=== PATIENT | male | born 1985 | race Caucasian/White ===

== ENCOUNTER 2020-12-01 09:08 | Inpatient (IN) | payer OTHER ==
[2020-12-01 10:27] VITALS: BMI 29.5
[2020-12-01] MEDS ORDERED: METHADONE HCL 10 MG TABLET (FOR DETOX USE ONLY) PO ONE (11:06)
[2020-12-01] MEDS ORDERED: cloNIDine HCL 0.1 MG TABLET PO PRN (11:06)
[2020-12-01] MEDS ORDERED: METHOCARBAMOL 500 MG TABLET PO PRN (11:06)
[2020-12-01] MEDS ORDERED: NICOTINE POLACRILEX 2 MG GUM BUC PRN (11:06)
[2020-12-01] MEDS ORDERED: MENTHOL/PHENOL 1 EACH UD MM PRN (11:06)
[2020-12-01] MEDS ORDERED: MAGNESIUM CITRATE 300 ML BOTTLE PO PRN (11:06)
[2020-12-01] MEDS ORDERED: BISMUTH SUBSALICYLATE 524 MG/30 ML UD PO PRN (11:06)
[2020-12-01] MEDS ORDERED: MAG HYDROX/AL HYDROX/SIMETH 30 ML UNIT-DOSE CUP PO PRN (11:06)
[2020-12-01] MEDS ORDERED: ACETAMINOPHEN 325 MG TABLET (FP) PO PRN ×2 (11:06)
[2020-12-01] MEDS ORDERED: MAGNESIUM HYDROX 2400MG/30ML ORAL SUSPENSION 30 ML CUP PO PRN (11:06)
[2020-12-01] MEDS ORDERED: ONDANSETRON *ODT* 4 MG TABLET SL PRN (11:06)
[2020-12-01] MEDS: cloNIDine HCL 0.1 MG TABLET PO SCH ×3 (12:33→22:25)
[2020-12-01] MEDS: NICOTINE 21 MG/24 HOURS TOPICAL PATCH TD SCH (12:36)
[2020-12-01] MEDS: PRENATAL VITAMINS W/ FOLIC ACID TABLET (FP) PO SCH (12:37)
[2020-12-01] MEDS ORDERED: PATIENT'S OWN MEDICATION (NON-FORMULARY) (Gabapentin [Gabapentin] 800 MG Tablet) PO SCH (14:00)
[2020-12-01] MEDS: hydrOXYzine PAMOATE 25 MG CAPSULE (FP) PO SCH ×3 (14:41→22:23)
[2020-12-01] MEDS: diazePAM 5 MG TABLET PO PRN (18:17)
[2020-12-01] MEDS ORDERED: MELATONIN 5 MG TABLETS PO SCH (22:00)
[2020-12-01] MEDS: GABAPENTIN 400 MG CAPSULE PO SCH (22:23)
[2020-12-01] MEDS: THIAMINE HCL 100 MG TABLET (FP) PO SCH (22:23)
[2020-12-02] MEDS: hydrOXYzine PAMOATE 25 MG CAPSULE (FP) PO SCH ×5 (05:11→22:23)
[2020-12-02] MEDS: cloNIDine HCL 0.1 MG TABLET PO SCH ×4 (05:13→22:27)
[2020-12-02] MEDS ORDERED: METHADONE HCL 5 MG TABLET (FOR DETOX USE ONLY) ONE (08:47)
[2020-12-02] MEDS ORDERED: METHADONE HCL 10 MG TABLET (FOR DETOX USE ONLY) ONE (08:47)
[2020-12-02] MEDS ORDERED: METHADONE (DETOX) 20 MG, METHADONE (DETOX) 5 MG PO ONE (10:00)
[2020-12-02 10:31] LABS: HEMATOCRIT 36.1 % (35.4-49); HEMOGLOBIN 12.6 GM/dL (11.7-16.9); MCH 29.2 pg (25.7-33.7); MEAN CELL VOLUME 83.4 fl (80-96); MEAN PLT VOLUME 7.7 fl (7.5-11.1); PLATELET COUNT 301 K/MM3 (134-434); RBC 4.33 M/mm3 (4.00-5.60); RDW 12.5 % (11.9-15.9); WHITE BLOOD COUNT 5.8 K/mm3 (4.0-10.0)
[2020-12-02] MEDS: GABAPENTIN 400 MG CAPSULE PO SCH ×2 (10:42→22:23)
[2020-12-02] MEDS: NICOTINE 21 MG/24 HOURS TOPICAL PATCH TD SCH (10:43)
[2020-12-02] MEDS: PRENATAL VITAMINS W/ FOLIC ACID TABLET (FP) PO SCH (10:43)
[2020-12-02] MEDS: diazePAM 5 MG TABLET PO PRN ×2 (10:47→19:02)
[2020-12-02 11:04] LABS: POTASSIUM 4.6 mmol/L (3.5-5.1)
[2020-12-02 11:07] LABS: ALBUMIN 3.3 g/dl (3.4-5.0); BLOOD UREA NITROGEN 9.3 mg/dL (7-18)
[2020-12-02 11:10] LABS: CREATININE 0.7 mg/dL (0.55-1.3)
[2020-12-02 11:12] LABS: BILIRUBIN,TOTAL 0.7 mg/dL (0.2-1); TOT PROT 6.8 g/dl (6.4-8.2)
[2020-12-02 15:26] LABS: HIV INTERPRETATION NEGATIVE (NEGATIVE)
[2020-12-02] MEDS: THIAMINE HCL 100 MG TABLET (FP) PO SCH (22:23)
[2020-12-02] MEDS: SUVOREXANT 10 MG TABLET PO PRN (22:26)
[2020-12-03] MEDS: hydrOXYzine PAMOATE 25 MG CAPSULE (FP) PO SCH ×5 (05:45→22:41)
[2020-12-03] MEDS: cloNIDine HCL 0.1 MG TABLET PO SCH ×4 (05:45→22:45)
[2020-12-03] MEDS: diazePAM 5 MG TABLET PO PRN ×3 (08:48→19:53)
[2020-12-03] MEDS: IBUPROFEN 400 MG TABLET (FP) PO PRN (08:50)
[2020-12-03] MEDS ORDERED: METHADONE HCL 10 MG TABLET (FOR DETOX USE ONLY) PO ONE (10:00)
[2020-12-03] MEDS: GABAPENTIN 400 MG CAPSULE PO SCH ×2 (10:11→22:41)
[2020-12-03] MEDS: PRENATAL VITAMINS W/ FOLIC ACID TABLET (FP) PO SCH (10:14)
[2020-12-03] MEDS: NICOTINE 21 MG/24 HOURS TOPICAL PATCH TD SCH (10:14)
[2020-12-03] MEDS: THIAMINE HCL 100 MG TABLET (FP) PO SCH (22:41)
[2020-12-03] MEDS: SUVOREXANT 10 MG TABLET PO PRN (22:44)
[2020-12-04] MEDS: hydrOXYzine PAMOATE 25 MG CAPSULE (FP) PO SCH ×5 (05:35→22:46)
[2020-12-04] MEDS: cloNIDine HCL 0.1 MG TABLET PO SCH ×4 (05:36→22:46)
[2020-12-04] MEDS: diazePAM 5 MG TABLET PO PRN ×3 (07:12→20:25)
[2020-12-04] MEDS ORDERED: METHADONE HCL 10 MG TABLET (FOR DETOX USE ONLY) ONE (09:14)
[2020-12-04] MEDS ORDERED: METHADONE HCL 5 MG TABLET (FOR DETOX USE ONLY) ONE (09:14)
[2020-12-04] MEDS ORDERED: METHADONE (DETOX) 10 MG, METHADONE (DETOX) 5 MG PO ONE (10:00)
[2020-12-04] MEDS: NICOTINE 21 MG/24 HOURS TOPICAL PATCH TD SCH (10:20)
[2020-12-04] MEDS: GABAPENTIN 400 MG CAPSULE PO SCH ×2 (10:20→22:47)
[2020-12-04] MEDS ORDERED: QUEtiapine FUMARATE 100 MG TABLET (FP) PO PRN (10:42)
[2020-12-04] MEDS: PRENATAL VITAMINS W/ FOLIC ACID TABLET (FP) PO SCH (11:09)
[2020-12-04] MEDS: SUVOREXANT 10 MG TABLET PO PRN (21:54)
[2020-12-04] MEDS: THIAMINE HCL 100 MG TABLET (FP) PO SCH (22:47)
[2020-12-04] MEDS: IBUPROFEN 400 MG TABLET (FP) PO PRN (22:47)
[2020-12-05] MEDS: hydrOXYzine PAMOATE 25 MG CAPSULE (FP) PO SCH ×5 (06:01→22:48)
[2020-12-05] MEDS: cloNIDine HCL 0.1 MG TABLET PO SCH ×4 (06:02→22:47)
[2020-12-05] MEDS ORDERED: METHADONE HCL 10 MG TABLET (FOR DETOX USE ONLY) PO ONE (10:00)
[2020-12-05] MEDS: GABAPENTIN 400 MG CAPSULE PO SCH ×2 (10:47→22:47)
[2020-12-05] MEDS: PRENATAL VITAMINS W/ FOLIC ACID TABLET (FP) PO SCH (10:47)
[2020-12-05] MEDS: NICOTINE 21 MG/24 HOURS TOPICAL PATCH TD SCH (10:48)
[2020-12-05] MEDS: diazePAM 5 MG TABLET PO PRN ×2 (10:50→15:23)
[2020-12-05] MEDS: THIAMINE HCL 100 MG TABLET (FP) PO SCH (22:47)
[2020-12-06] MEDS: cloNIDine HCL 0.1 MG TABLET PO SCH (05:56)
[2020-12-06] MEDS: hydrOXYzine PAMOATE 25 MG CAPSULE (FP) PO SCH (05:57)
[2020-12-06] MEDS ORDERED: METHADONE HCL 5 MG TABLET (FOR DETOX USE ONLY) PO ONE (06:00)
[2020-12-06] MEDS: diazePAM 5 MG TABLET PO PRN (08:08)
[2020-12-06 09:23] VITALS: BP 112/74; PULSE 73; TEMP 97.3
== END 2020-12-06 09:47 | disposition home or self-care (01) | DRG 773 ==
LOC: YASAS 09:08 → Y6N 11:22
PROVIDERS: ADMIT Allergy & Immunology; ATTEND Allergy & Immunology
PROC: HZ2ZZZZ Detoxification Services for Substance Abuse Treatment (ICD-10-PCS; principal; 2020-12-01)
DX: F11.23 Opioid dependence with withdrawal (principal); F13.20 Sedative, hypnotic or anxiolytic dependence, uncomplicated; F17.210 Nicotine dependence, cigarettes, uncomplicated; F19.282 Other psychoactive substance dependence with psychoactive substance-induced sleep disorder; F41.9 Anxiety disorder, unspecified; F32.9 Major depressive disorder, single episode, unspecified; I10 Essential (primary) hypertension; G40.909 Epilepsy, unspecified, not intractable, without status epilepticus; Z56.0 Unemployment, unspecified
CPT/HCPCS: 36415; 80053; 85027; 86780; 87389; 93005; 93010; C9803; J0735; U0003

== ENCOUNTER 2021-01-21 15:08 | Inpatient (IN) | payer OTHER ==
[2021-01-21] MEDS ORDERED: NICOTINE POLACRILEX 2 MG GUM BUC PRN (19:21)
[2021-01-21] MEDS ORDERED: BISMUTH SUBSALICYLATE 524 MG/30 ML UD PO PRN (19:21)
[2021-01-21] MEDS ORDERED: ONDANSETRON *ODT* 4 MG TABLET SL PRN (19:21)
[2021-01-21] MEDS ORDERED: MAGNESIUM HYDROX 2400MG/30ML ORAL SUSPENSION 30 ML CUP PO PRN (19:21)
[2021-01-21] MEDS ORDERED: METHADONE HCL 10 MG TABLET (FOR DETOX USE ONLY) PO ONE (19:21)
[2021-01-21] MEDS ORDERED: MAGNESIUM CITRATE 300 ML BOTTLE PO PRN (19:21)
[2021-01-21] MEDS ORDERED: MENTHOL/PHENOL 1 EACH UD MM PRN (19:21)
[2021-01-21] MEDS ORDERED: MAG HYDROX/AL HYDROX/SIMETH 30 ML UNIT-DOSE CUP PO PRN (19:21)
[2021-01-21] MEDS ORDERED: ACETAMINOPHEN 325 MG TABLET (FP) PO PRN ×2 (19:21)
[2021-01-21] MEDS ORDERED: IBUPROFEN 400 MG TABLET (FP) PO PRN (19:21)
[2021-01-21 19:46] VITALS: BMI 29.8
[2021-01-21] MEDS: PRENATAL VITAMINS W/ FOLIC ACID TABLET (FP) PO SCH (21:27)
[2021-01-21] MEDS: NICOTINE 14 MG/24 HOURS TOPICAL PATCH TD SCH (21:27)
[2021-01-21] MEDS: MELATONIN 5 MG TABLETS PO SCH (22:25)
[2021-01-21] MEDS: hydrOXYzine PAMOATE 25 MG CAPSULE (FP) PO SCH (22:26)
[2021-01-21] MEDS: GABAPENTIN 400 MG CAPSULE PO SCH (22:26)
[2021-01-21] MEDS: THIAMINE HCL 100 MG TABLET (FP) PO SCH (22:26)
[2021-01-22] MEDS: hydrOXYzine PAMOATE 25 MG CAPSULE (FP) PO SCH ×5 (05:47→22:13)
[2021-01-22] MEDS ORDERED: METHADONE HCL 5 MG TABLET (FOR DETOX USE ONLY) ONE (09:12)
[2021-01-22] MEDS ORDERED: METHADONE HCL 10 MG TABLET (FOR DETOX USE ONLY) ONE (09:12)
[2021-01-22] MEDS ORDERED: METHADONE (DETOX) 20 MG, METHADONE (DETOX) 5 MG PO ONE (10:00)
[2021-01-22] MEDS: cloNIDine HCL 0.1 MG TABLET PO PRN (10:30)
[2021-01-22] MEDS: PRENATAL VITAMINS W/ FOLIC ACID TABLET (FP) PO SCH (10:30)
[2021-01-22] MEDS: NICOTINE 14 MG/24 HOURS TOPICAL PATCH TD SCH (10:31)
[2021-01-22] MEDS: GABAPENTIN 400 MG CAPSULE PO SCH ×2 (10:31→22:13)
[2021-01-22 10:38] LABS: ALBUMIN 3.6 g/dl (3.4-5.0); BLOOD UREA NITROGEN 12.9 mg/dL (7-18); CALCIUM 8.8 mg/dL (8.5-10.1)
[2021-01-22 10:39] LABS: HEMATOCRIT 37.5 % (35.4-49); HEMOGLOBIN 12.7 GM/dL (11.7-16.9); MCH 28.3 pg (25.7-33.7); MCHC 33.7 g/dl (32.0-35.9); MEAN CELL VOLUME 83.8 fl (80-96); MEAN PLT VOLUME 7.6 fl (7.5-11.1); PLATELET COUNT 252 K/MM3 (134-434); RBC 4.48 M/mm3 (4.00-5.60); RDW 13.9 % (11.9-15.9); WHITE BLOOD COUNT 5.1 K/mm3 (4.0-10.0)
[2021-01-22 10:41] LABS: CREATININE 0.7 mg/dL (0.55-1.3)
[2021-01-22 10:42] LABS: BILIRUBIN,TOTAL 0.3 mg/dL (0.2-1); TOT PROT 6.9 g/dl (6.4-8.2)
[2021-01-22] MEDS: diazePAM 5 MG TABLET PO PRN (14:24)
[2021-01-22] MEDS: THIAMINE HCL 100 MG TABLET (FP) PO SCH (22:13)
[2021-01-22] MEDS: QUEtiapine FUMARATE 100 MG TABLET (FP) PO PRN (22:16)
[2021-01-22] MEDS: MELATONIN 5 MG TABLETS PO SCH (22:18)
[2021-01-23] MEDS: diazePAM 5 MG TABLET PO PRN ×3 (00:25→17:39)
[2021-01-23] MEDS: hydrOXYzine PAMOATE 25 MG CAPSULE (FP) PO SCH ×5 (05:32→22:37)
[2021-01-23] MEDS ORDERED: METHADONE HCL 10 MG TABLET (FOR DETOX USE ONLY) PO ONE (10:00)
[2021-01-23] MEDS: PRENATAL VITAMINS W/ FOLIC ACID TABLET (FP) PO SCH (10:16)
[2021-01-23] MEDS: NICOTINE 14 MG/24 HOURS TOPICAL PATCH TD SCH (10:16)
[2021-01-23] MEDS: GABAPENTIN 400 MG CAPSULE PO SCH ×2 (10:17→22:37)
[2021-01-23] MEDS: METHOCARBAMOL 500 MG TABLET PO PRN (10:18)
[2021-01-23] MEDS: cloNIDine HCL 0.1 MG TABLET PO PRN (22:37)
[2021-01-23] MEDS: MELATONIN 5 MG TABLETS PO SCH (22:37)
[2021-01-23] MEDS: THIAMINE HCL 100 MG TABLET (FP) PO SCH (22:37)
[2021-01-23] MEDS: QUEtiapine FUMARATE 100 MG TABLET (FP) PO PRN (22:55)
[2021-01-24] MEDS: diazePAM 5 MG TABLET PO PRN ×4 (04:51→22:20)
[2021-01-24] MEDS: hydrOXYzine PAMOATE 25 MG CAPSULE (FP) PO SCH ×5 (06:22→22:21)
[2021-01-24] MEDS ORDERED: METHADONE HCL 5 MG TABLET (FOR DETOX USE ONLY) ONE (08:55)
[2021-01-24] MEDS ORDERED: METHADONE HCL 10 MG TABLET (FOR DETOX USE ONLY) ONE (08:56)
[2021-01-24] MEDS ORDERED: METHADONE (DETOX) 10 MG, METHADONE (DETOX) 5 MG PO ONE (10:00)
[2021-01-24] MEDS: GABAPENTIN 400 MG CAPSULE PO SCH ×2 (10:19→22:18)
[2021-01-24] MEDS: PRENATAL VITAMINS W/ FOLIC ACID TABLET (FP) PO SCH (10:20)
[2021-01-24] MEDS: NICOTINE 14 MG/24 HOURS TOPICAL PATCH TD SCH (10:20)
[2021-01-24] MEDS: METHOCARBAMOL 500 MG TABLET PO PRN (10:22)
[2021-01-24 16:08] LABS: SARS-CoV-2 NAA Not Detected (Not Detected)
[2021-01-24] MEDS: cloNIDine HCL 0.1 MG TABLET PO PRN (20:44)
[2021-01-24] MEDS: QUEtiapine FUMARATE 100 MG TABLET (FP) PO PRN (22:18)
[2021-01-24] MEDS: MELATONIN 5 MG TABLETS PO SCH (22:18)
[2021-01-24] MEDS: THIAMINE HCL 100 MG TABLET (FP) PO SCH (22:18)
[2021-01-25] MEDS: diazePAM 5 MG TABLET PO PRN ×2 (05:34→09:19)
[2021-01-25] MEDS: hydrOXYzine PAMOATE 25 MG CAPSULE (FP) PO SCH ×5 (05:35→22:11)
[2021-01-25] MEDS: METHOCARBAMOL 500 MG TABLET PO PRN (09:18)
[2021-01-25] MEDS: GABAPENTIN 400 MG CAPSULE PO SCH ×2 (09:18→22:11)
[2021-01-25] MEDS: PRENATAL VITAMINS W/ FOLIC ACID TABLET (FP) PO SCH (09:19)
[2021-01-25] MEDS: NICOTINE 14 MG/24 HOURS TOPICAL PATCH TD SCH (09:21)
[2021-01-25] MEDS ORDERED: METHADONE HCL 10 MG TABLET (FOR DETOX USE ONLY) PO ONE (10:00)
[2021-01-25] MEDS: cloNIDine HCL 0.1 MG TABLET PO PRN ×2 (13:52→22:11)
[2021-01-25] MEDS: THIAMINE HCL 100 MG TABLET (FP) PO SCH (22:11)
[2021-01-25] MEDS: QUEtiapine FUMARATE 100 MG TABLET (FP) PO PRN (22:13)
[2021-01-25] MEDS: MELATONIN 5 MG TABLETS PO SCH (23:08)
[2021-01-26] MEDS: hydrOXYzine PAMOATE 25 MG CAPSULE (FP) PO SCH (05:26)
[2021-01-26] MEDS ORDERED: METHADONE HCL 5 MG TABLET (FOR DETOX USE ONLY) PO ONE (06:00)
[2021-01-26 06:09] VITALS: BP 119/80; PULSE 85; TEMP 96.9
== END 2021-01-26 07:00 | disposition home or self-care (01) | DRG 773 ==
LOC: YASAS 15:08 → Y6N 20:39
PROVIDERS: ADMIT Allergy & Immunology; ATTEND Allergy & Immunology
PROC: HZ2ZZZZ Detoxification Services for Substance Abuse Treatment (ICD-10-PCS; principal; 2021-01-21)
DX: F11.23 Opioid dependence with withdrawal (principal); F13.20 Sedative, hypnotic or anxiolytic dependence, uncomplicated; F17.210 Nicotine dependence, cigarettes, uncomplicated; F19.282 Other psychoactive substance dependence with psychoactive substance-induced sleep disorder; F41.9 Anxiety disorder, unspecified; F32.9 Major depressive disorder, single episode, unspecified; I10 Essential (primary) hypertension; K21.9 Gastro-esophageal reflux disease without esophagitis; G40.42 Cyclin-Dependent Kinase-Like 5 Deficiency Disorder; R74.01 Elevation of levels of liver transaminase levels; Z91.011 Allergy to milk products
CPT/HCPCS: 36415; 80053; 85027; 86780; C9803; J0735; U0003; U0005

== ENCOUNTER 2021-06-13 09:28 | Inpatient (IN) | payer OTHER ==
[2021-06-13 10:20] VITALS: BMI 26.2
[2021-06-13] MEDS ORDERED: MAGNESIUM HYDROX 2400MG/30ML ORAL SUSPENSION 30 ML CUP PO PRN (12:06)
[2021-06-13] MEDS ORDERED: NICOTINE 10 MG CARTRIDGE (INHALER) IH PRN (12:06)
[2021-06-13] MEDS ORDERED: MENTHOL/PHENOL 1 EACH UD MM PRN (12:06)
[2021-06-13] MEDS ORDERED: ACETAMINOPHEN 325 MG TABLET (FP) PO PRN ×2 (12:06)
[2021-06-13] MEDS ORDERED: MAGNESIUM CITRATE 300 ML BOTTLE PO PRN (12:06)
[2021-06-13] MEDS ORDERED: IBUPROFEN 400 MG TABLET (FP) PO PRN (12:06)
[2021-06-13] MEDS ORDERED: MAG HYDROX/AL HYDROX/SIMETH 30 ML UNIT-DOSE CUP PO PRN (12:06)
[2021-06-13] MEDS ORDERED: methaDONE HCL 10 MG TABLET (FOR DETOX USE ONLY) PO ONE (12:06)
[2021-06-13] MEDS ORDERED: BISMUTH SUBSALICYLATE 524 MG/30 ML PO PRN (12:06)
[2021-06-13] MEDS ORDERED: NALOXONE (NARCAN) HCL 4 MG/0.1 ML SPRAY NS PRN (13:27)
[2021-06-13] MEDS ORDERED: methaDONE HCL 10 MG TABLET PO ONE (13:29)
[2021-06-13] MEDS ORDERED: methaDONE HCL 10 MG TABLET ONE (14:02)
[2021-06-13] MEDS: clonazePAM 0.5 MG ODT TABLETS SL PRN ×2 (14:06→22:09)
[2021-06-13] MEDS: GABAPENTIN 400 MG CAPSULE PO SCH ×2 (14:06→22:07)
[2021-06-13] MEDS ORDERED: MELATONIN 5 MG TABLETS PO SCH (22:00)
[2021-06-13] MEDS: THIAMINE HCL 100 MG TABLET (FP) PO SCH (22:07)
[2021-06-13] MEDS: cloNIDine HCL 0.1 MG TABLET PO PRN (22:09)
[2021-06-14] MEDS: clonazePAM 0.5 MG ODT TABLETS SL PRN ×3 (04:42→22:30)
[2021-06-14] MEDS: GABAPENTIN 400 MG CAPSULE PO SCH ×3 (05:09→22:27)
[2021-06-14] MEDS ORDERED: methaDONE HCL 10 MG TABLET (FOR DETOX USE ONLY) ONE (09:48)
[2021-06-14] MEDS: PRENATAL VITAMINS W/ FOLIC ACID TABLET (FP) PO SCH (10:23)
[2021-06-14 11:32] LABS: MCH 28.6 pg (25.7-33.7); MCHC 34.2 g/dl (32.0-35.9); MEAN CELL VOLUME 83.6 fl (80-96); MEAN PLT VOLUME 7.3 fl (7.5-11.1); PLATELET COUNT 352 10^3/uL (134-434); RBC 4.55 M/mm3 (4.00-5.60); RDW 12.9 % (11.9-15.9); WHITE BLOOD COUNT 6.2 K/mm3 (4.0-10.0)
[2021-06-14 11:57] LABS: ALBUMIN 3.3 g/dl (3.4-5.0); BLOOD UREA NITROGEN 13.7 mg/dL (7-18); CALCIUM 9.2 mg/dL (8.5-10.1)
[2021-06-14 12:00] LABS: CREATININE 0.6 mg/dL (0.55-1.3)
[2021-06-14 12:01] LABS: BILIRUBIN,TOTAL 0.2 mg/dL (0.2-1); TOT PROT 7.1 g/dl (6.4-8.2)
[2021-06-14] MEDS: cloNIDine HCL 0.1 MG TABLET PO PRN (12:18)
[2021-06-14] MEDS ORDERED: methaDONE HCL 10 MG TABLET (FOR DETOX USE ONLY) PO ONE (12:19)
[2021-06-14] MEDS: METHOCARBAMOL 500 MG TABLET PO PRN ×2 (13:31→22:30)
[2021-06-14] MEDS: THIAMINE HCL 100 MG TABLET (FP) PO SCH (22:27)
[2021-06-15] MEDS ORDERED: methaDONE HCL 10 MG TABLET (FOR DETOX USE ONLY) PO ONE ×2 (06:00→10:00)
[2021-06-15] MEDS: GABAPENTIN 400 MG CAPSULE PO SCH (06:04)
[2021-06-15] MEDS: clonazePAM 0.5 MG ODT TABLETS SL PRN (06:06)
[2021-06-15 09:18] VITALS: BP 111/82; PULSE 86; TEMP 96.6
[2021-06-15] MEDS: cloNIDine HCL 0.1 MG TABLET PO PRN (10:56)
[2021-06-15] MEDS: METHOCARBAMOL 500 MG TABLET PO PRN (10:56)
[2021-06-15] MEDS: PRENATAL VITAMINS W/ FOLIC ACID TABLET (FP) PO SCH (10:57)
[2021-06-16] MEDS ORDERED: methaDONE HCL 10 MG TABLET (FOR DETOX USE ONLY) PO ONE (10:00)
[2021-06-17] MEDS ORDERED: methaDONE HCL 10 MG TABLET (FOR DETOX USE ONLY) PO ONE ×2 (10:00)
[2021-06-18] MEDS ORDERED: methaDONE HCL 10 MG TABLET (FOR DETOX USE ONLY) PO ONE (10:00)
== END 2021-06-15 12:42 | disposition left against medical advice (07) | DRG 770 ==
LOC: YASAS 09:28 → Y3N 12:29
PROVIDERS: ADMIT Allergy & Immunology; ATTEND Allergy & Immunology
PROC: HZ2ZZZZ Detoxification Services for Substance Abuse Treatment (ICD-10-PCS; principal; 2021-06-13)
DX: F11.23 Opioid dependence with withdrawal (principal); F10.20 Alcohol dependence, uncomplicated; F12.20 Cannabis dependence, uncomplicated; F17.210 Nicotine dependence, cigarettes, uncomplicated; I10 Essential (primary) hypertension; G40.909 Epilepsy, unspecified, not intractable, without status epilepticus
CPT/HCPCS: 36415; 80053; 85027; 86780; C9803; J0735; U0003; U0005